=== PATIENT | male | born 1985 | race Caucasian/White ===

== ENCOUNTER 2019-02-04 09:21 | Day surgery (SDC) | payer OTHER, SELFPAY ==
--- NOTE | 2019-02-04 | PATH_ITS ---
[facility] Accession Number: [id number] . 01 Material submitted: . gastrointestinal site - GASTRIC BIOPSIES . 02 Diagnosis: Stomach, Biopsies: Antral and body-type mucosa with mild chronic gastritis. Negative for Helicobacter organisms by immunohistochemistry. Negative for intestinal metaplasia. Negative for dysplasia and malignancy. . [facility]/02/06/2019 . 02 Electronically signed: . Janine Flores MD, Pathologist NPI- [id number] . 01 Gross description: . GASTRIC BIOPSIES: Received in formalin are 2 fragment(s) of rodriguez, soft tissue measuring 0.1 x 0.1 x 0.1 cm to 0.2 x 0.2 x 0.1 cm which is entirely submitted and submitted entirely in 1 cassette(s) /DMC /DMC . 02 Microscopic: . An immunohistochemical stain was performed to evaluate for Helicobacter organisms and is negative.The control stain showed appropriate reactivity. . * This test was developed and its performance characteristics determined by [facility]. It has not been cleared or approved by the [place]. Food and Drug Administration. The FDA has determined that such clearance or approval is not necessary. This test is used for clinical purposes. It should not be regarded as investigational or for research. . 02 Pathologist provided ICD-10: R10.9 . 02 CPT . 348781, [id number] Performed at: [facility] [address] [facility], [place], [place] [id number] MD Ayush Pearson MD Phone: [phone] Performed at: 02 [facility] [id number] [place], [place] [id number] MD Janine Flores MD Phone: [phone]
[2019-02-04 09:30] VITALS: BP 118/82; PULSE 85; RESP 16; TEMP 36; O2SAT 97; BMI 29.2
[2019-02-04] MEDS: SODIUM CHLORIDE 0.9% 1,000 ML 42 ML IV (09:48)
--- NOTE | 2019-02-04 10:29 | PM.HP.1 ---
History of Present Illness Date Patient Seen: 02/04/19 Time Patient Seen: 10:29 Chief complaint: [id number] Narrative: Right upper quadrant pain rule out peptic disease in the face of gallstones. Patient History Medical History (Updated 02/03/19 @ 16:47 by Jyoti Duron RN) Gallstones (Acute) Surgical History (Updated 02/03/19 @ 16:49 by Jyoti Duron RN) Status post anterior cruciate ligament surgery (Acute) Social History household members: spouse Family & Social History Social History: household members spouse Meds Home Medications Medication Instructions Recorded Confirmed Type omeprazole magnesium [Prilosec OTC] 20 mg PO DAILY 02/03/19 02/04/19 History Allergies Allergy/AdvReac Type Severity Reaction Status Date / Time No Known Drug Allergies Allergy Verified 02/04/19 09:34 Exam Vital Signs (past 8 hours): - 02/04/19 09:30 Temperature 96.8 F L Pulse Rate 85 Respiratory Rate 16 Blood Pressure 118/82 Pulse Oximetry 97 Oxygen Delivery Method Room Air Narrative Exam Narrative: Oropharynx free of lesions Chest clear to auscultation percussion Cardiac exam reveals no S3 or murmur Assessment & Plan Assessment & Plan narrative: Assessment. Right upper quadrant pain with known history of gallstones. Pain is somewhat responsive to PPIs though sounds like biliary colic. Rule out peptic disease prior to cholecystectomy. EGD will be performed. Risks, benefits, alternatives have been explained. Further recommendations will follow the results of the study.
--- NOTE | 2019-02-04 10:30 | PM.OP.ENDO ---
Operative Date/Time/Diagnoses Date of procedure: 02/04/19 Time of procedure: 10:31 Pre-op diagnosis: See indication and findings Procedure & Clinicians Study performed: EGD Indications: Right upper quadrant pain Surgeon: Diana Sales Procedure Notes Procedure in detail: After informed consent was obtained the patient was placed in the left lateral decubitus position. The video upper scope was placed into the oropharynx with the patient's health swelled the esophagus. The esophagus stomach and duodenum were carefully examined. On withdrawal retroflexed view the GE junction was performed. The scope was removed. The patient tolerated the procedure well. Blood loss none Complications none Medication Total sedation time 8 minutes Versed 8 mg fentanyl 100 micro g IV titration Findings 1. Grade B esophagitis with 2 erosions present 2. Patchy and streaky antral erythema biopsies taken to rule out Helicobacter 3. Normal duodenal bulb and sweep If the patient's symptoms sound like biliary colic I would still refer him to surgery for cholecystectomy. [facility] [place]. In the meantime he will stay on Prilosec.
--- NOTE | 2019-02-04 10:46 | SUR.OPER ---
GLASSES TO PACU WITH PATIENT.
[2019-02-04] MEDS: fentaNYL 250 MCG/5 ML INJ IV (10:49)
[2019-02-04] MEDS: MIDAZOLAM 5 MG/5 ML VIAL IV (10:50)
[2019-02-04 11:02] VITALS: BP 108/74; PULSE 78; RESP 17; TEMP 36.5; O2SAT 94
[2019-02-04 11:07] VITALS: BP 107/72; PULSE 78; RESP 12; O2SAT 95
[2019-02-04 11:12] VITALS: BP 110/80; PULSE 89; RESP 16; O2SAT 93
[2019-02-04 11:18] VITALS: BP 118/82; PULSE 87; RESP 18; O2SAT 96
[2019-02-04 11:29] VITALS: BP 110/79; PULSE 81; RESP 15; TEMP 36.6; O2SAT 94
== END 2019-02-04 11:43 ==
LOC: ENDO 09:23
PROVIDERS: PCP Physician Assistant; Visit Provider Internal Medicine Gastroenterology
PROC: 0DJ08ZZ Inspection of Upper Intestinal Tract, Via Natural or Artificial Opening Endoscopic (ICD-10-PCS; CPT 43235; principal; 2019-02-04 10:30)
DX: K20.9 Esophagitis, unspecified (principal); K29.70 Gastritis, unspecified, without bleeding
CPT/HCPCS: 43239; 88305; 88342; J2250; J3010